=== PATIENT | female | born 1995 | race Asian ===

== ENCOUNTER 2017-09-04 01:31 | Emergency (ER) | payer OTHER ==
[2017-09-04 01:38] VITALS: TEMP 36.8
[2017-09-04 02:30] LABS: BLOOD UREA NITROGEN 13 mg/dl (7-18); CARBON DIOXIDE 20 mmol/L (21-32); CREATININE 0.54 mg/dl (0.60-1.20); GLUCOSE 105 mg/dl (70-99); SODIUM 140 mmol/L (136-145)
--- NOTE | 2017-09-04 03:00 | EMERGENCY ROOM VISIT NOTE ---
History Report prepared by [facility]: Digna Mills Under the Supervision of: Dr. Agnieszka Oh D.O. First contact with patient: 01:46 Chief Complaint: ALCOHOL OVERDOSE Stated Complaint: ALCOHOL OVERDOSE Nursing Triage Summary: patient found downtown throwing up next to friends car. EMS state police called because she wasnt responsive. patient responsive upon arrival History of Present Illness The patient is a 22 year old female who presents to the Emergency Room for an intentional ongoing alcohol overdose that occurred tonight. According to police statements, the patient was found vomiting next to a friends car. The patient's male friend states that the patient had been drinking at a "[place] event" at [facility]. He states that he was not with her the entire night, but he did not see her fall. The patient is a [employer] student. HPI limited due to alcohol intoxication. Source of History: patient History Limited By: intoxication (alcohol) Onset: tonight Position: other (global) Quality: other (alcohol overdose) Timing: other (ongoing) Associated Symptoms: + vomiting Review of Systems See HPI for pertinent positives & negatives. A total of 10 systems reviewed and were otherwise negative. Past Medical & Surgical Medical Problems: (1) No Known Active Medical Problems Limited due to alcohol intoxication. Family History Patient reports no known family medical history. No pertinent family history. Social History Smoking Status: Unknown if Ever Smoked Smokeless Tobacco Use: Unknown Alcohol Use: heavy Drug Use: none Marital Status: single Housing Status: lives with family Occupation Status: [employer] student Current/Historical Medications No Active Prescriptions or Reported Meds Allergies Coded Allergies: No Known Allergies (Unverified , 09/04/17) Physical Exam Vital Signs Date Time Temp Pulse Resp B/P (MAP) Pulse Ox O2 Delivery O2 Flow Rate FiO2 09/04/17 06:53 103 16 95/63 100 Room Air 09/04/17 06:05 95 16 86/44 97 Room Air 09/04/17 05:07 90 09/04/17 04:16 96 16 89/46 95 Room Air 09/04/17 02:15 101 12 83/58 100 Room Air 09/04/17 01:59 113 09/04/17 01:38 36.8 113 20 98/54 99 Room Air Physical Exam General: semi responsive. Vomit about her face. Smells like alcohol. HEENT: Head - normocephalic and atraumatic Eyes- pupils are 6mm and nonreactive. Extraocular eye muscles are intact, and sclera are anicteric. Nose - moist nasal mucosa without discharge. Mouth - moist buccal mucosa. Oropharynx is nonerythematous and there is no tonsillar exudate or edema noted. Neck: Supple; no JVD, nuchal rigidity, cervical lymphadenopathy. Heart: Regular rate and rhythm. There is a normal S1 and S2 with no murmurs, clicks, or gallops appreciated. Lungs: Clear to auscultation bilaterally with no wheezes, rales, or rhonchi. Abdomen: Soft, completely nontender, nondistended, with good bowel sounds. There are no palpable pulsatile masses or hepatosplenomegaly. There is no guarding, rigidity, or rebound noted. Extremities: No evidence of cyanosis, clubbing, or edema. There are easily palpable peripheral pulses. Skin: warm and dry with good turgor and no rashes. Medical Decision & Procedures Laboratory Results 09/04/17 02:05 Test 09/04/17 02:05 Anion Gap 13.0 mmol/L (3-11) Estimated GFR () > 150.0 Estimated GFR (Non- 134.9 BUN/Creatinine Ratio 23.4 (10-20) Calcium Level 8.0 mg/dl (8.5-10.1) Ethyl Alcohol mg/dL 310.0 mg/dl (0-3) Laboratory results per my review. ED Course 0144: Past medical records reviewed. The patient was evaluated in room A2. A complete history and physical exam was performed. Labs were drawn as above. The patient was placed in the prone position to avoid aspiration. She was observed on a classroom monitor and pulse oximeter. 0341: I reevaluated the patient, who was sleeping. She was hemodynamically stable. 0620: I reevaluated the patient, who was up and in the bathroom. 0654: I reevaluated the patient, who was fully awake. Her friend is coming to pick her up. I discussed test findings with her and she verbalized complete agreement of the treatment plan. Medical Decision The patient is a 22 year old female who presents to the ED for an alcohol overdose. Differential diagnosis includes alcohol overdose, drug intoxication, head injury, and hypoglycemia. Laboratory results showed: alcohol level of 310, potassium of 3, glucose of 105, and normal renal function. The patient was brought to the emergency department after consuming too much alcohol. There were no obvious signs of trauma or complaints of pain. They were observed closely throughout the night and remained stable while here in the ER. The patient was allowed time to sober up prior to discharge. I had a conversation with the patient about the hazards of such excessive alcohol use. Medication Reconcilliation Current Medication List: was personally reviewed by me Impression Primary Impression: Alcohol overdose Scribe Attestation The scribe's documentation has been prepared under my direction and personally reviewed by me in its entirety. I confirm that the note above accurately reflects all work, treatment, procedures, and medical decision making performed by me. Departure Information Dispostion Still a Patient Prescriptions No Active Prescriptions or Reported Meds Referrals No Doctor, Assigned (PCP) Forms HOME CARE DOCUMENTATION FORM, IMPORTANT VISIT INFORMATION Patient Instructions My [facility] Problem Qualifiers Primary Impression: Alcohol overdose Encounter type: initial encounter Injury intent: accidental or unintentional Qualified Codes: T51.91XA - Toxic effect of unspecified alcohol , accidental (unintentional), initial encounter
[2017-09-04 06:53] VITALS: BP 95/63; PULSE 103; O2SAT 100
== END 2017-09-04 07:17 | disposition home or self-care (01) ==
LOC: EDBD 01:31 → C.EDA 01:33
DX: T51.0X1A Toxic effect of ethanol, accidental (unintentional), initial encounter (principal)